=== PATIENT | female | born 1975 | race African-American/Black ===

== ENCOUNTER 2017-01-16 04:05 | Emergency (ER) | payer BC ==
[~2017-01-16] VITALS: Ht 165.1 cm; Wt 132.9 kg
[~2017-01-16 04:05] MED LIST: ALLEGRA180 MG PO; BACTRIM DS 8001 TAB PO; CARAFATE1 GM PO; CEFZIL250 MG PO; CLARITIN 10MG T10 MG PO; KEFLEX 500MG.500 MG PO; LORTAB 5/500 501 TAB PO; MOTRIN600 MG PO; NOMEDS XX; PHENERGAN 25MG.25 MG PR; PREDNISONE 20MG20 MG PO; PROTONIX 40MG T40 MG PO; SEPTRA DS 800 M1 TAB PO
--- OUTSIDE RECORDS SUMMARY | 2017-01-16 04:40 | External Medical Summary Rpt ---
Author Author , FLORIDALMA HEDRICK Address Unknown Phone [email or web address] Care Team Providers Care Power Plant Assistant Name Role Phone Eric Fuller MD, Unavailable Unavailable Eric Fuller MD [facility] Unavailable Unavailable [id number] # [phone], [facility] [id number] # [phone] [facility] # Unavailable Unavailable [id number], [facility] # [id number] Purpose Continuity of Care Document - 08-13-2009 through 2016 Problems Code Diagnosis DOS Provider Status 911.5 911.5 04-16-2013 [place] INSECT BITE [facility] TRUNK-INFEC Allergies, Adverse Reactions, Alerts Type Drug Allergy Adverse Reaction to Substance Substance Reaction Severity ASA (aspirin) NOSE BLEEDS Mild Medications Na ND Rx Da Fi Fi Am Da Di Ph RX Ph St me C No te ll ll ou ys ag ar # ys at rm s nt no ma ic us Or Da si cy ia de te s n re d CE 62 11 0 No PH 75 -0 AL 60 9- Lo EX 29 20 ng IN 48 13 er 8 50 Ac 0 ti MG ve CA PS UL E OGDEN 51 11 0 No LF 07 -0 AM 90 9- Lo ET 12 20 ng HO 82 13 er XA 0 ZO Ac LE ti -T ve MP DS TA BL ET AL 00 11 0 No ED 05 -0 NI 40 9- Lo SO 01 20 ng NE 82 13 er 0 20 Ac ti MG ve TA BL ET HY [address] 07 -0 OX 90 9- Lo YZ 07 20 ng IN 72 13 er E 0 PA Ac M ti 25 ve MG CA P 60 01 01 0 18 4 WA 71 EN Ac 25 -2 -2 0. L- 03 GL ti 80 0- 0- 00 MA 21 AN ve 23 20 20 0 RT 0 D 91 11 11 SH 6 PH AR AR I MA L CY # 10 05 91 AM 00 01 01 0 28 7 WA 71 EN Ac OX 78 -2 -2 .0 L- 03 GL ti IC 12 0- 0- 00 MA 21 AN ve IL 61 20 20 RT 1 D LI 30 11 11 SH N 5 PH AR 50 AR I 0 MA L MG CY # CA PS 10 UL 05 E 91 LI 00 11 11 5 30 30 RI 85 MO Ac SI 17 -1 -1 .0 TE 78 SE ti NO 25 1- 1- 00 18 S ve AL [address] [place] 36 10 10 D EP -H [address] AR N Z MA A 10 CY -1 2. 03 5 93 MG 8 # TA 03 B 93 00 11 11 30 30 RI 85 MO Ac 09 -1 -1 .0 TE 78 SE ti 51 1- 1- 00 19 S ve [address] 00 10 10 D EP 6 PH HE AR N MA A CY 03 93 8 # 03 93 LO 00 11 11 14 14 RI 85 SO Ac RA 78 -0 -0 .0 TE 67 KA ti TA 15 3- 3- 00 45 N ve DI 07 20 20 AI BA NE 70 10 10 D BA 1 PH TU 10 AR ND MA E MG CY O TA 03 BL 93 ET 8 # 03 93 HY 00 10 11 0 30 2 WA [address] 40 -2 -0 .0 L- 18 EE ti OM 63 9- 1- 00 MA 89 LE ve OR 24 20 20 RT 3 R PH 30 10 10 TI ON 1 PH MO E AR TH 2 MA Y MG CY M # TA BL 10 ET 05 91 OGDEN 50 10 10 0 56 14 WA 70 SO Ac LF 38 -2 -2 0. L- 90 KA ti AM 30 0- 0- 00 MA 99 N ve ET 82 20 20 0 RT 1 BA HO 41 10 10 BA XA 6 PH TU ZO AR ND LE MA E -T CY O MP # OGDEN 10 SP 05 91 AL 45 10 10 0 15 2 WA 70 SO Ac OM 80 -1 -2 .0 L- 90 KA ti ET 20 9- 0- 00 MA 99 N ve FAULKNER 75 20 20 RT 2 BA ZI 93 10 10 BA NE 0 PH TU AR ND 25 MA E CY O MG # OGDEN 10 PP 05 OS 91 IT OR Y CE 68 10 10 0 21 7 WA 70 GA Ac PH 18 -0 -0 .0 L- 89 IN ti AL 00 8- 9- 00 MA 68 EY ve EX 12 20 20 RT 1 IN 20 10 10 HI 1 PH CH 50 AR AE 0 MA L MG CY S # CA PS 10 UL 05 E 91 HY 00 09 09 0 30 2 WA [address] 40 -2 -2 .0 L- 18 MP ti OM 63 4- 4- 00 MA 69 KI ve OR 24 20 20 RT 5 NS PH 30 10 10 ON 1 PH JR E AR 2 MA RO MG CY DE # RI TA CK BL 10 J ET 05 91 AL 37 09 09 3 60 30 WA 88 TO Ac IL 00 -2 -2 .0 L- 16 MP ti OS 00 4- 4- 00 MA 68 KI ve EC 45 20 20 RT 7 NS 50 10 10 OT 4 PH JR C AR 20 MA RO .6 CY DE # RI MG CK 10 J TA 05 BL 91 ET HY 00 09 09 0 30 3 WA [address] 40 -1 -1 .0 L- 18 EE ti OM 63 6- 6- 00 MA 64 LE ve OR 24 20 20 RT 4 R PH 30 10 10 TI ON 1 PH MO E AR TH 2 MA Y MG CY M # TA BL 10 ET 05 91 NE 00 09 09 6. 1 RI 84 WH Ac OM 09 -1 -1 00 TE 99 EE ti YC 31 3- 5- 0 90 LE ve IN 17 20 20 AI R 70 10 10 D TI 50 1 PH MO 0 AR TH MG MA Y CY M TA BL 03 ET 93 8 # 03 93 ME 50 09 09 3. 1 RI 84 WH Ac TR 11 -1 -1 00 TE 99 EE ti ON 10 3- 5- 0 91 LE ve ID 33 20 20 AI R AZ 40 10 10 D TI OL 1 PH MO E AR TH 50 MA Y 0 CY M MG 03 TA 93 BL 8 ET # 03 93 00 09 09 40 1 RI 84 WH Ac 37 -1 -1 00 TE 99 EE ti 86 3- 5- .0 92 LE ve 66 20 20 00 AI R 94 10 10 D TI 0 PH MO AR TH MA Y CY M 03 93 8 # 03 93 FL 00 07 07 1. 1 RI 84 EN Ac UC 17 -2 -2 00 TE 25 GL ti ON 25 2- 2- 0 93 AN ve AZ 41 20 20 AI D OL 21 10 10 D SH E 1 PH AR 15 AR I 0 MA L MG CY TA 03 BL 93 ET 8 # 03 93 LI 00 06 06 2 30 30 RI 83 CA Ac SI 17 -2 -[address] ti NO 25 2- 2- 00 95 IL ve AL 03 20 20 AI LO IL 36 10 10 D -H [address] AR J Z MA V 10 CY -1 2. 03 5 93 MG 8 # TA 03 B 93 ME 00 06 06 2 30 30 RI 83 CA Ac TF 09 -2 -[address] ti OR 31 2- 2- 00 96 IL ve HI 04 20 20 AI LO N 80 10 10 D HC 1 PH JR L AR J 50 MA V 0 CY MG 03 TA 93 BL 8 ET # 03 93 OX 53 05 05 30 5 RI 83 WH Ac YC 74 -0 -0 .0 TE 25 EE ti OD 60 4- 4- 00 01 LE ve ON 20 20 20 AI R E- 40 10 10 D TI AC 1 PH MO ET AR TH AM MA Y IN CY M OP HE 03 N 93 10 8 -3 # 25 03 93 ME 00 04 04 30 30 RI 83 CA Ac TF 09 -1 -[address] ti OR 31 6- 6- 00 22 IL ve HI 04 20 20 AI LO N 80 10 10 D HC 1 PH JR L AR J 50 MA V 0 CY MG 03 TA 93 BL 8 ET # 03 93 LI 00 04 04 30 30 RI 83 CA Ac SI 17 -1 -[address] ti NO 25 6- 6- 00 23 IL ve AL 03 20 20 AI LO IL 36 10 10 D -H [address] AR J Z MA V 10 CY -1 2. 03 5 93 MG 8 # TA 03 B 93 AL 64 03 03 14 14 RI 82 WH Ac EV 76 -3 -3 .0 TE 77 EE ti PA 40 0- 0- 00 79 LE ve C 70 20 20 AI R PA 20 10 10 D TI TI 1 PH MO EN AR TH T MA Y PA CY M CK 03 93 8 # 03 93 60 03 03 90 2 RI 82 CA Ac 25 -2 -[address] ti 80 3- 3- 00 91 IL ve 23 20 20 AI LO 91 10 10 D 6 PH JR AR J MA V CY 03 93 8 # 03 93 FE 00 03 03 60 30 RI 82 CA Ac RR 67 -0 -[address] ti OU 70 9- 9- 00 79 IL ve S 07 20 20 AI LO OGDEN 00 10 10 D LF 1 PH JR AT AR J E MA V 32 CY 5 MG 03 93 TA 8 BL # ET 03 93 ME 00 01 03 1 30 30 RI 81 CA Ac TF 09 -1 -[address] ti OR 31 2 8- 00 96 IL ve HI 04 20 20 AI LO N 80 10 10 D HC 1 PH JR L AR J 50 MA V 0 CY MG 03 TA 93 BL 8 ET # 03 93 LI 00 01 03 1 30 30 RI 81 CA Ac SI 17 -1 -[address] ti NO 25 8 97 IL ve AL 03 20 20 AI LO IL 36 10 10 D -H [address] AR J Z MA V 10 CY -1 2. 03 5 93 MG 8 # TA 03 B 93 Vital Signs 04-16-2013 22:11 Name Value Interpretat Reference Comment ion Range Body 99 [degF] Temperature BP 82 mm[Hg] Diastolic BP Systolic 143 mm[Hg] Heart 72 /min Rate/Pulse O2% 98 % Respiratory 20 /min Rate 04-16-2013 21:50 Name Value Interpretat Reference Comment ion Range BP 82 mm[Hg] Diastolic BP Systolic 143 mm[Hg] Heart 72 /min Rate/Pulse O2% 98 % Respiratory 20 /min Rate Encounters Encounter Start End Date Code Location Performer Type Date Emergency ANTONIO Fuller MD (ER) 3 21:21 3 22:11 [facility]
--- OUTSIDE RECORDS SUMMARY | 2017-01-16 04:40 | External Medical Summary Rpt ---
Author Author , FLORIDALMA HEDRICK Address Unknown Phone [email or web address] Care Team Providers Care Silk Screen Printer Machine Name Role Phone Eric Fuller MD, Unavailable Unavailable Eric Fuller MD [facility] Unavailable Unavailable [id number] # [phone], [facility] [id number] # [phone] [facility] # Unavailable Unavailable [id number], [facility] # [id number] Purpose Continuity of Care Document - 08-13-2009 through 2016 Problems Code Diagnosis DOS Provider Status 911.5 911.5 04-16-2013 [place] INSECT BITE [facility] TRUNK-INFEC Allergies, Adverse Reactions, Alerts Type [...] -T ve MP DS TA BL ET FL 00 11 0 No ED 05 -0 [...] 25 1- 1- 00 18 S ve FL [address] [place] 36 [...] MP # OGDEN 10 SP 05 91 FL 45 10 10 0 15 2 WA [...] 20 RT 1 IN 20 10 10 MT 1 PH CH 50 AR AE 0 [...] CK BL 10 J ET 05 91 FL 37 09 09 3 60 30 WA [...] 25 2- 2- 00 95 IL ve FL 03 20 20 AI LO IL 36 10 10 D -H [address] AR J Z MA V 10 CY -1 2. 03 5 93 MG 8 # TA 03 B 93 ME 00 06 06 2 30 30 RI 83 CA Ac TF 09 -2 -[address] ti OR 31 2- 2- 00 96 IL ve MT 04 20 20 AI LO N 80 [...] 31 6- 6- 00 22 IL ve MT 04 20 20 AI LO N 80 10 10 D HC 1 PH JR L AR J 50 MA V 0 CY MG 03 TA 93 BL 8 ET # 03 93 LI 00 04 04 30 30 RI 83 CA Ac SI 17 -1 -[address] ti NO 25 6- 6- 00 23 IL ve FL 03 20 20 AI LO IL 36 10 10 D -H [address] AR J Z MA V 10 CY -1 2. 03 5 93 MG 8 # TA 03 B 93 FL 64 03 03 14 14 RI 82 [...] 31 2 8- 00 96 IL ve MT 04 20 20 AI LO N 80 10 10 D HC 1 PH JR L AR J 50 MA V 0 CY MG 03 TA 93 BL 8 ET # 03 93 LI 00 01 03 1 30 30 RI 81 CA Ac SI 17 -1 -[address] ti NO 25 8 97 IL ve FL 03 20 20 AI LO IL 36 [...] Fuller MD (ER) 3 21:21 3 22:11 [facility]
--- OUTSIDE RECORDS SUMMARY | 2017-01-16 04:41 | External Medical Summary Rpt ---
Demographics Preferred Language Armenian Marital Status Unknown Jew Affiliation Unknown Race Unknown Ethnic Group Unknown Author Author FLORIDALMA Address Unknown Phone Immunization Unable to retrieve immunization data due to connection failure with Immunization Registry. Please try again later.
--- OUTSIDE RECORDS SUMMARY | 2017-01-16 04:41 | External Medical Summary Rpt ---
Demographics Preferred Language Indonesian Marital Status Unknown Scientology Affiliation Unknown Race Unknown Ethnic Group Unknown Author Author , FLORIDALMA HEDRICK Address Unknown Phone [email or web address] Care Team Providers Care District Plant Supervisor Name Role Phone [facility] Unavailable Unavailable [phone] # [phone], [facility] [id number] # [phone] [facility] # Unavailable Unavailable [id number], [facility] # [id number] Purpose Continuity of Care Document - 08-13-2009 through 2016 Medications Na ND Rx Da Fi Fi Am Da Di Ph RX Ph St me C No te ll ll ou ys ag ar # ys at rm s nt no ma ic us Or Da si cy ia de te s n re d 60 01 01 0 18 4 WA [...] 25 1- 1- 00 18 S ve AZ 03 [address] [place] 36 [...] MP # OGDEN 10 SP 05 91 AZ 45 10 10 0 15 2 WA 70 SO Ac OM 80 -1 -2 .0 L- 90 KA ti ET 20 9- 0- 00 MA 99 N ve FAULKNER 75 20 20 RT 2 BA ZI 93 10 10 BA NE 0 PH TU AR ND 25 MA E CY O MG # ODGEN 10 PP 05 OS 91 IT OR Y CE 68 10 10 0 21 7 WA 70 GA Ac PH 18 -0 -0 .0 L- 89 IN ti AL 00 8- 9- 00 MA 68 EY ve EX 12 20 20 RT 1 IN 20 10 10 NC 1 PH CH 50 AR AE 0 [...] CK BL 10 J ET 05 91 AZ 37 09 09 3 60 30 WA [...] 25 2- 2- 00 95 IL ve AZ 03 20 20 AI LO IL 36 10 10 D -H [address] AR J Z MA V 10 CY -1 2. 03 5 93 MG 8 # TA 03 B 93 ME 00 06 06 2 30 30 RI 83 CA Ac TF 09 -2 -[address] ti OR 31 2- 2- 00 96 IL ve NC 04 20 20 AI LO N 80 [...] 31 6- 6- 00 22 IL ve NC 04 20 20 AI LO N 80 10 10 D HC 1 PH JR L AR J 50 MA V 0 CY MG 03 TA 93 BL 8 ET # 03 93 LI 00 04 04 30 30 RI 83 CA Ac SI 17 -1 -[address] ti NO 25 6- 6- 00 23 IL ve AZ 03 20 20 AI LO IL 36 10 10 D -H [address] AR J Z MA V 10 CY -1 2. 03 5 93 MG 8 # TA 03 B 93 AZ 64 03 03 14 14 RI 82 [...] .[address] ti OR 31 2- 8- 00 96 IL ve NC 04 20 20 AI LO N 80 10 10 D HC 1 PH JR L AR J 50 MA V 0 CY MG 03 TA 93 BL 8 ET # 03 93 LI 00 01 03 1 30 30 RI 81 CA Ac SI 17 -1 -[address] ti NO 25 2- 8- 00 97 IL ve AZ 03 20 20 AI LO IL 36 10 10 D -H [address] AR J Z MA V 10 CY -1 2. 03 5 93 MG 8 # TA 03 B 93
--- OUTSIDE RECORDS SUMMARY | 2017-01-16 04:41 | External Medical Summary Rpt ---
Demographics Preferred Language Romanian Marital Status Unknown Advent Affiliation Unknown Race Unknown Ethnic Group Unknown Author Author FLORIDALMA Address Unknown Phone Immunization Unable to retrieve immunization data due to connection failure with Immunization Registry. Please try again later.
--- OUTSIDE RECORDS SUMMARY | 2017-01-16 04:41 | External Medical Summary Rpt ---
Demographics Preferred Language Arabic Marital Status Unknown Sabianist Affiliation Unknown Race Unknown Ethnic Group Unknown Author Author , FLORIDALMA HEDRICK Address Unknown Phone [email or web address] Care Team Providers Care Certified Novell Engineer Name Role Phone [facility] Unavailable Unavailable [phone] # [phone], [facility] [id number] # [phone] [facility] # Unavailable Unavailable [phone], [facility] # [id number] Purpose Continuity of Care Document - 08-13-2009 [...] 25 1- 1- 00 18 S ve DE [address] [place] 36 [...] MP # OGDEN 10 SP 05 91 DE 45 10 10 0 15 2 WA [...] CK BL 10 J ET 05 91 DE 37 09 09 3 60 30 WA [...] 25 2- 2- 00 95 IL ve DE 03 20 20 AI LO IL 36 [...] 25 6- 6- 00 23 IL ve DE 03 20 20 AI LO IL 36 10 10 D -H [address] AR J Z MA V 10 CY -1 2. 03 5 93 MG 8 # TA 03 B 93 DE 64 03 03 14 14 RI 82 [...] 31 2- 8- 00 96 IL ve MT 04 [...] 25 2- 8- 00 97 IL ve DE 03 20 20 AI LO IL 36 10 10 D -H [address] AR J Z MA V 10 CY -1 2. 03 5 93 MG 8 # TA 03 B 93
[2017-01-16 04:47] LABS: HEMOGLOBIN 9.1 g/dL (12.2-16.2); LYMPH # 4.8 K/mm3 (0.7-4.5); LYMPH % 37.2 % (10-50.0)
--- NOTE | 2017-01-16 05:22 | Emergency Room Report ---
History of Present Illness Time Seen by [id number] Presenting Problem in Triage Pt arrived:Walked Presenting Problem:c/o NONPRODUCTIVE COUGH WITH CHEST DISCOMFORT.PAIN WORSE WITH DEEP RESP. ALSO C/O WEAKNESS AND DRY MOUTH. 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 N Clinical Suspician of Infection? Y Mental Status: 1 - Regular (Normal Baseline) Sepsis Risk:Possible Sepsis Risk Have you (or family members/close friends) recently traveled outside the [place]? N If Yes, where/when: Have you had exposure to infectious disease within the past month? N TB? Other? 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 No Angina: No SD: No Hypertension? No Hyperlipidemia? No CHF? No DVT? No PE? No COPD? No Asthma? No Anemia? No GERD? No Gastric ulcers? No GI Bleed? No Hernia? No Thyroid Problems? No Hypothyroidism? No CVA? No Seizures? No Diabetes? No End Stage Renal Disease? No UTI? No Stones? No BPH? No GB Disease: Yes Nephritic Syndrome? No Asplenia? No Hepatitis? No Sickle Cell Disease? No Arthritis? No Migraines? No Cataracts? No Glaucoma? No MRSA? No HIV? No TB? No Anxiety? No Depression? No Cancer? 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 denies: ear discharge, epistaxis, throat pain, throat swelling. Respiratory see HPI, cough, shortness of breath, denies wheezing Cardiovascular see HPI, chest pain, denies syncope Gastrointestinal denies abdominal pain, denies diarrhea, denies vomiting Genitourinary denies: dysuria, frequency, hesitancy, hematuria. Musculoskeletal denies back pain, denies joint pain, denies joint swelling, denies neck pain Skin denies rash Psychiatric/Neurological denies headache, denies seizure Physical Exam Vital Signs Vital Signs Date Time Temp Pulse Resp B/P Pulse O2 O2 Flow FiO2 Ox Delivery Rate 01/16 0411 98.4 90 20 161/105 99 - WBC >12,000 or <4,000 or 10% bands? 2 or more SIRS Criteria Met? B/P:161/105 MAP:123 Creatinine >2.0? UA output<0.5ml/kg/hr for 2 hrs? Platelet count >100,000? Lactate >2.0mmol/1? INR >1.2 or PTT > than 60 sec? Evidence of Organ Dysfunction? Provider documented clinical suspician of infection? Y Sepsis Criteria Count: 2 Sepsis Risk: Possible Sepsis Risk General Appearance no apparent distress Eye Exam - bilateral eye PERRL, bilateral eye EOMI Ear, Nose, Throat normal ENT inspection Neck non-tender Respiratory Status No: respiratory distress. Lung Sounds bilateral: decreased breath sounds. 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 No Results/Orders Laboratory Tests 01/16/17424: Creatine Kinase 144, CK-MB (CK-2) Rel Index 0.3, CK and CKMB Interp < 0.5, Troponin I < 0.02 01/16/17424: Sodium 135 L, Potassium 3.4 L, Chloride 100, Carbon Dioxide 29, BUN 12, Creatinine 0.8, Estimated Creat Clear 194, Estimated GFR (MDRD) 79, Glucose 107 H, Calcium 8.9, Total Bilirubin 0.6, AST 25, ALT 33, Alkaline Phosphatase 102, Total Protein 9.3 H, Albumin 3.6, Globulin 5.7 H, Albumin/Globulin Ratio 0.6 L, WBC 12.9 H, RBC 4.65, Hgb 9.1 L, Hct 32.2 L, MCV 69.2 L, RDW 19.5 H, Plt Count 367, MPV 7.4, Gran % 52.5, Gran # 6.8, Lymphocytes % 37.2, Monocytes % 6.3 , Eosinophils % 3.4, Basophils % 0.6, Lymphocytes # 4.8 H, Monocytes # 0.8, Eosinophils # 0.4, Basophils # 0.1, PUBS MCHC 28.3 L, MCH 19.6 L Current Medication Orders Sig/Claudia Start time Last Medication Dose Route Stop Time Status Admin Albuterol 2 PUFFS ONCE ONE 01/16 545 AC IH 01/16 546 Levofloxacin 500 MG ONCE ONE 01/16 545 AC PO 01/16 546 Miscellaneous 1 UNIT ONCE ONE 01/16 545 AC XX 01/16 546 Prednisone 20 MG ONCE ONE 01/16 545 AC PO 01/16 546 Sodium Chloride 10 ML PRN PRN 01/16 430 AC IV 01/17 422 Orders Procedure Date/time Status RT REQUEST ALBUTEROL INHALER 01/16 533 Active CARDIAC ENZYMES 01/16 433 Complete 12 LEAD EKG-BESSON (INITIAL) 01/17 424 Active ELECTROCARDIOGRAM REQUEST 01/16 423 Active CHEST(2 VIEWS-NOT PORTABLE) 01/16 423 Active IV SALINE LOCK 01/16 423 Active CBC WITH AUTO DIFF 01/16 423 Complete CHEM 12 PROFILE 01/16 423 Complete CM/EKG CM/associate Rhythm Normal Sinus Rhythm EKG no evid. of ischemic chgs XRAY/CT/US XRAY/CT/US XRAY chest XR interpretation by reviewed by me Xray Results abnormal (cap) Departure Departure Time of Disposition 05 Disposition DC Home or Self Care(routine) Clinical Impression Primary Impression: CAP (community acquired pneumonia) Qualifiers: Laterality: right Lung location: lower lobe of lung Qualified Code: J18.1 - Lobar pneumonia, unspecified organism Secondary Impressions: Anemia Qualifiers: Anemia type: unspecified type Qualified Code: D64.9 - Anemia, unspecified Elevated BP without diagnosis of hypertension Condition STABLE Patient Instructions DI for Cough -- Adult Additional Instructions use meds and see pcp for follow up Discharge Counseling Counseled pt/family regarding diagnosis, test results, medications/RX, follow up needs Prescriptions Current Visit Scripts Prednisone (Prednisone 20MG) 20 MG PO BID #10 TAB BENZONATATE (Benzonatate) 100 MG PO TID #15 CAP Azithromycin (Zithromycin (Z-DARIUSZ) 250MG Tab) 250 MG PO DAILY #6 TAB TAKE TWO (2) TABLETS ON DAY 1, THEN ONE (1) TABLET DAY #2 THRU #5 ED Critical Care Critical Care No at [id number]
--- NOTE | 2017-01-16 05:22 | Emergency Room Report ---
History of Present Illness Time Seen by [id number] Presenting Problem in Triage Pt arrived:Walked Presenting Problem:c/o NONPRODUCTIVE COUGH WITH CHEST DISCOMFORT.PAIN WORSE WITH DEEP RESP. ALSO C/O WEAKNESS AND DRY MOUTH. 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 N Clinical Suspician of Infection? Y Mental Status: 1 - Regular (Normal Baseline) Sepsis Risk:Possible Sepsis Risk Have you (or family members/close friends) recently traveled outside the [place]? N If Yes, where/when: Have you had exposure to infectious disease within the past month? N TB? Other? 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 No Angina: No DE: No Hypertension? No Hyperlipidemia? No CHF? No DVT? No PE? No COPD? No Asthma? No Anemia? No GERD? No Gastric ulcers? No GI Bleed? No Hernia? No Thyroid Problems? No Hypothyroidism? No CVA? No Seizures? No Diabetes? No End Stage Renal Disease? No UTI? No Stones? No BPH? No GB Disease: Yes Nephritic Syndrome? No Asplenia? No Hepatitis? No Sickle Cell Disease? No Arthritis? No Migraines? No Cataracts? No Glaucoma? No MRSA? No HIV? No TB? No Anxiety? No Depression? No Cancer? 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 denies: ear discharge, epistaxis, throat pain, throat swelling. Respiratory see HPI, cough, shortness of breath, denies wheezing Cardiovascular see HPI, chest pain, denies syncope Gastrointestinal denies abdominal pain, denies diarrhea, denies vomiting Genitourinary denies: dysuria, frequency, hesitancy, hematuria. Musculoskeletal denies back pain, denies joint pain, denies joint swelling, denies neck pain Skin denies rash Psychiatric/Neurological denies headache, denies seizure Physical Exam Vital Signs Vital Signs Date Time Temp Pulse Resp B/P Pulse O2 O2 Flow FiO2 Ox Delivery Rate 01/16 0411 98.4 90 20 161/105 99 - WBC >12,000 or <4,000 or 10% bands? 2 or more SIRS Criteria Met? B/P:161/105 MAP:123 Creatinine >2.0? UA output<0.5ml/kg/hr for 2 hrs? Platelet count >100,000? Lactate >2.0mmol/1? INR >1.2 or PTT > than 60 sec? Evidence of Organ Dysfunction? Provider documented clinical suspician of infection? Y Sepsis Criteria Count: 2 Sepsis Risk: Possible Sepsis Risk General Appearance no apparent distress Eye Exam - bilateral eye PERRL, bilateral eye EOMI Ear, Nose, Throat normal ENT inspection Neck non-tender Respiratory Status No: respiratory distress. Lung Sounds bilateral: decreased breath sounds. 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 No Results/Orders Laboratory Tests 01/16/17424: Creatine Kinase 144, CK-MB (CK-2) Rel Index 0.3, CK and CKMB Interp < 0.5, Troponin I < 0.02 01/16/17424: Sodium 135 L, Potassium 3.4 L, Chloride 100, Carbon Dioxide 29, BUN 12, Creatinine 0.8, Estimated Creat Clear 194, Estimated GFR (MDRD) 79, Glucose 107 H, Calcium 8.9, Total Bilirubin 0.6, AST 25, ALT 33, Alkaline Phosphatase 102, Total Protein 9.3 H, Albumin 3.6, Globulin 5.7 H, Albumin/Globulin Ratio 0.6 L, WBC 12.9 H, RBC 4.65, Hgb 9.1 L, Hct 32.2 L, MCV 69.2 L, RDW 19.5 H, Plt Count 367, MPV 7.4, Gran % 52.5, Gran # 6.8, Lymphocytes % 37.2, Monocytes % 6.3 , Eosinophils % 3.4, Basophils % 0.6, Lymphocytes # 4.8 H, Monocytes # 0.8, Eosinophils # 0.4, Basophils # 0.1, PUBS MCHC 28.3 L, MCH 19.6 L Current Medication Orders Sig/Claudia Start time Last Medication Dose Route Stop Time Status Admin Albuterol 2 PUFFS ONCE ONE 01/16 545 AC IH 01/16 546 Levofloxacin 500 MG ONCE ONE 01/16 545 AC PO 01/16 546 Miscellaneous 1 UNIT ONCE ONE 01/16 545 AC XX 01/16 546 Prednisone 20 MG ONCE ONE 01/16 545 AC PO 01/16 546 Sodium Chloride 10 ML PRN PRN 01/16 430 AC IV 01/17 422 Orders Procedure Date/time Status RT REQUEST ALBUTEROL INHALER 01/16 533 Active CARDIAC ENZYMES 01/16 433 Complete 12 LEAD EKG-BESSON (INITIAL) 01/17 424 Active ELECTROCARDIOGRAM REQUEST 01/16 423 Active CHEST(2 VIEWS-NOT PORTABLE) 01/16 423 Active IV SALINE LOCK 01/16 423 Active CBC WITH AUTO DIFF 01/16 423 Complete CHEM 12 PROFILE 01/16 423 Complete 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 of ischemic chgs XRAY/CT/US XRAY/CT/US XRAY chest XR interpretation by reviewed by me Xray Results abnormal (cap) Departure Departure Time of Disposition 05 Disposition DC Home or Self Care(routine) Clinical Impression Primary Impression: CAP (community acquired pneumonia) Qualifiers: Laterality: right Lung location: lower lobe of lung Qualified Code: J18.1 - Lobar pneumonia, unspecified organism Secondary Impressions: Anemia Qualifiers: Anemia type: unspecified type Qualified Code: D64.9 - Anemia, unspecified Elevated BP without diagnosis of hypertension Condition STABLE Patient Instructions DI for Cough -- Adult Additional Instructions use meds and see pcp for follow up Discharge Counseling Counseled pt/family regarding diagnosis, test results, medications/RX, follow up needs Prescriptions Current Visit Scripts Prednisone (Prednisone 20MG) 20 MG PO BID #10 TAB BENZONATATE (Benzonatate) 100 MG PO TID #15 CAP Azithromycin (Zithromycin (Z-DARIUSZ) 250MG Tab) 250 MG PO DAILY #6 TAB TAKE TWO (2) TABLETS ON DAY 1, THEN ONE (1) TABLET DAY #2 THRU #5 ED Critical Care Critical Care No at [id number]
[2017-01-16] MEDS ORDERED: TESSALON PERLE100 MG PO (05:34)
[2017-01-16] MEDS ORDERED: ZITHROMAX Z PA250 MG PO (05:34)
[2017-01-16] MEDS ORDERED: PREDNISONE 20MG20 MG PO (05:34)
[2017-01-16 05:45] VITALS: BP 156/91
--- NOTE | 2017-01-16 07:49 | RADIOLOGY REPORT PS360 ---
CHEST(2 VIEWS-NOT PORTABLE) HISTORY: C/O NONPRODUCTIVE COUGH AND CONGESTION ORDERING PHYSICIAN: Eric Fuller MD PATIENT AGE: 41 years COMPARISON: 12/05/2014 FINDINGS: The cardiomediastinal silhouette and pulmonary vascularity are within normal limits. The lungs are clear without infiltrates, suspicious nodules, or pleural effusions. No acute bony abnormalities. IMPRESSION: Negative chest, no acute finding
== END 2017-01-16 05:46 | disposition home or self-care (01) ==
LOC: ER 04:05
PROVIDERS: Emergency Medicine
DX: R03.0 Elevated blood-pressure reading, without diagnosis of hypertension (principal)